=== PATIENT | female | born 1930 ===

== ENCOUNTER 2018-01-08 01:47 | Inpatient (IN) | payer MEDICARE, MEDICAID ==
[2018-01-08 01:48] VITALS: BMI 18.4
[2018-01-08] MEDS ORDERED: Nitroglycerin 2% Ointment Foilpak UD TOP STA (02:17)
[2018-01-08] MEDS ORDERED: Nitroglycerin 2% Ointment Foilpak UD TOP ONE (02:40)
[2018-01-08 03:41] LABS: BASO % 0.6 % (0.0-2.0); HEMOGLOBIN 11.6 g/dL (11.0-16.0); LYMPH # 1.1 K/uL (1.0-4.3); LYMPH % 29.8 % (20.0-40.0); MEAN CELL VOLUME 95.4 fL (81.0-99.0); MEAN CORPUSCULAR HEMOGLOBIN 33.7 pg (27.0-31.0); MEAN CORPUSCULAR HGB CONC 35.4 g/dL (33.0-37.0); MEAN PLATELET VOLUME 8.6 fL (7.2-11.7); MONO # 0.3 K/uL (0.0-0.8); MONO % 8.6 % (0.0-10.0); NEUT # 2.1 K/uL (1.8-7.0); RBC 3.44 Mil/uL (3.80-5.20); RED CELL DISTRIBUTION WIDTH 14.8 % (11.5-14.5); WHITE BLOOD COUNT 3.6 K/uL (4.8-10.8)
[2018-01-08 03:53] LABS: ALB/GLOB RATIO 1.4 (1.0-2.1); ALBUMIN 4.1 g/dL (3.5-5.0); ALT/SGPT 31 U/L (9-52); AST/SGOT 33 U/L (14-36); BLOOD UREA NITROGEN 25 mg/dL (7-17); CALCIUM 8.9 mg/dl (8.6-10.4); GFR AFRICAN-AMERICAN > 60; GFR NON-AFRICAN AMERICAN > 60; LIPASE 168 U/L (23-300)
[2018-01-08 04:05] LABS: B-TYPE NATRIURETIC PEPTIDE 225 pg/mL (0-900)
[2018-01-08 04:17] LABS: PROTHROMBIN TIME 11.4 SECONDS (9.7-12.2)
[2018-01-08] MEDS ORDERED: Iodixanol 320 MG/ML 100 ML BOTTLE IV ONE (04:40)
--- NOTE | 2018-01-08 05:36 | CT ---
EXAM: CT Angiography Chest With Intravenous Contrast CLINICAL HISTORY: 87 years old, female; Pain; Chest pain; Additional info: Chest pain radiating to the back TECHNIQUE: Axial computed tomographic angiography images of the chest with intravenous contrast using pulmonary embolism protocol. All CT scans at this facility use one or more dose reduction techniques, viz.: automated exposure control; ma/kV adjustment per patient size (including targeted exams where dose is matched to indication; i.e. head); or iterative reconstruction technique. MIP reconstructed images were created and reviewed. Coronal and sagittal reformatted images were created and reviewed. CONTRAST: 100 mL of VISIPAQUE administered intravenously. COMPARISON: No relevant prior studies available. FINDINGS: Pulmonary arteries: No pulmonary embolism. Aorta: Moderate to extensive atherosclerotic disease. No aneurysm. Lungs: Early emphysematous changes. Minimal atelectasis. No consolidation. Few pulmonary nodules, up to 0.6 cm. Pleural space: No significant effusion. No pneumothorax. Heart: No cardiomegaly. No significant pericardial effusion. Coronary artery calcifications. Bones/joints: Degenerative changes of shoulders and spine. No acute fracture. Soft tissues: Unremarkable. Lymph nodes: No pathologically enlarged lymph nodes. IMPRESSION: 1. No CT evidence of pulmonary embolism. 2. Pulmonary nodules. For low-risk patients recommend follow-up chest CT at 3-6 months. If unchanged consider an additional follow-up CT at 18-24 months. For high-risk patients (smoking history or other known risk factors) initial follow-up chest CT at 3-6 months and if unchanged, 18-24 months. 3. Incidental/non-acute findings are described above.
--- NOTE | 2018-01-08 05:58 | C.PDOC ---
Time Seen by Provider: 01/08/18 02:07 Chief Complaint (Nursing): Chest Pain History Per: Patient, EMS, Family Onset/Duration Of Symptoms: Hrs (2) Current Symptoms Are (Timing): Still Present Severity: Moderate Quality: "Pain" Associated Symptoms: Dyspnea Modifying Factors: Other Indicated Below Alleviating Factors: None Nitro Therapy Administered: 3, Per EMS, Partial Relief Additional History Per: Prior Records Past Medical History Reviewed: Historical Data, Nursing Documentation, Vital Signs Vital Signs: Last Vital Signs Temp 97.8 F 01/08/18 03:39 Pulse 50 L 01/08/18 03:39 Resp 15 01/08/18 03:39 BP 149/42 L 01/08/18 03:39 Pulse Ox 99 01/08/18 03:39 - Medical History PMH: HTN, Hypothyroidism Surgical History: Cholecystectomy Family History: States: Unknown Family Hx - Social History Hx Alcohol Use: No Hx Substance Use: No - Immunization History Hx Tetanus Toxoid Vaccination: No Hx Influenza Vaccination: No Hx Pneumococcal Vaccination: No Review Of Systems Except As Marked, All Systems Reviewed And Found Negative. Constitutional: Negative for: Fever, Weakness Cardiovascular: Positive for: Chest Pain Respiratory: Negative for: Hemoptysis Gastrointestinal: Negative for: Vomiting, Abdominal Pain, Diarrhea Genitourinary: Negative for: Dysuria Musculoskeletal: Positive for: Back Pain (upper). Negative for: Neck Pain Skin: Negative for: Rash Neurological: Negative for: Weakness, Numbness Physical Exam - Physical Exam Appears: Non-toxic, No Acute Distress Skin: Normal Color, Warm, Dry, No Rash Head: Atraumatic, Normacephalic Eye(s): bilateral: PERRL, EOMI Neck: Normal ROM, Supple Cardiovascular: Rhythm Regular Respiratory: Normal Breath Sounds, No Accessory Muscle Use Gastrointestinal/Abdominal: Soft, No Tenderness Back: No CVA Tenderness Extremity: Normal ROM Neurological/Psych: Oriented x3, Normal Motor, Normal Sensation ED Course And Treatment - Laboratory Results Result Diagrams: 01/08/18 03:35 01/08/18 03:35 ECG: Interpreted By Me, Viewed By Me ECG Rhythm: Sinus Rhythm, Nonspecific Changes Rate From EC O2 Sat by Pulse Oximetry: 99 Pulse Ox Interpretation: Normal - Radiology CXR: Interpreted by Me, Viewed By Me CXR Interpretation: Yes: No Acute Disease - CT Scan/US CTA of chest Other Rad Studies (CT/US): Read By Radiologist, Radiology Report Reviewed CT/US Interpretation: IMPRESSION: 1. No CT evidence of pulmonary embolism. 2. Pulmonary nodules. For low-risk patients recommend follow-up chest CT at. 3-6 months. If unchanged consider an additional follow-up CT at 18-24 months. For high-risk patients (smoking history or other known risk factors) initial. follow-up chest CT at 3-6 months and if unchanged, 18-24 months. 3. Incidental /non-acute findings are described above. Progress - Interventions Interventions:: Observation, Oxygen - Medications Administered Oral: Aspirin (given by EMS) - Data Reviewed Data Reviewed: Lab, Diagnostic imaging, EKG, Old records - Patient Status Patient status: Mostly improved - Critical Care Citical Care: Excluding Proc Time Critical Care Time: 45 minutes - Continuity of Care Discussed patient case with:: Patient, Family-HIPPA compliant, ED Nurse, On- call PMD-pt unassigned Disposition Discussed With : Nasir Segundo Comment: He accepted pt on his service and gave admitting orders to the nurse. Doctor Will See Patient In The: Hospital Counseled Patient/Family Regarding: Studies Performed, Diagnosis - Disposition Disposition: HOSPITALIZED Disposition Time: 05:59 Condition: FAIR - Clinical Impression Clinical Impression: Acute chest pain
[2018-01-08] MEDS ORDERED: Diclofenac Sodium Delayed Release 75 mg EC Tab PO PRN (06:38)
[2018-01-08] MEDS: Levothyroxine 88 MCG TAB PO SCH ×2 (06:58→07:09)
[2018-01-08] MEDS ORDERED: Pantoprazole 40 mg EC Tab PO ONE (07:38)
[2018-01-08] MEDS: Pantoprazole 40 mg EC Tab PO SCH (07:38)
[2018-01-08] MEDS ORDERED: Metoprolol Succinate 12.5 mg XL PO SCH (10:00)
--- NOTE | 2018-01-08 10:02 | RAD ---
PROCEDURE: CHEST RADIOGRAPH, 1 VIEW HISTORY: chest pain COMPARISON: None available. FINDINGS: LUNGS: Clear. PLEURA: No pneumothorax or pleural fluid seen. CARDIOVASCULAR: Normal. OSSEOUS STRUCTURES: No significant abnormalities. VISUALIZED UPPER ABDOMEN: Normal. OTHER FINDINGS: None. IMPRESSION: No active disease.
[2018-01-08] MEDS: Enoxaparin 30 mg Syringe SC SCH (10:11)
[2018-01-08] MEDS: Multiple Vitamins Tab PO SCH (10:11)
[2018-01-08 11:34] LABS: CK-MB 1.25 ng/mL (0.0-3.38)
--- NOTE | 2018-01-08 15:05 | CP.PCM.HP ---
History of Present Illness - History of Present Illness History of Present Illness: COMPREHENSIVE HISTORY & PHYSICAL EXAM HPI ADMITTED WITH CP RADINTING TO L ARM A/W DIAPHORESIS CH ER , PRELIMINARY CARDIAC W/U NEG CT CHEST ANGIO , NEG FOR PE , POS NODULES PAST HIST. HTN/ PERSONAL HIST: Smoking. N Alcohol. N Allergy N Travel_- . FAMILY HIST : ROS : Constitutional: Negative for weight change, chills, night sweats, fatigue and usage of assist device. Eyes: Negative for redness, swelling, itching, discharge, vision changes, blurry vision, double vision, glaucoma, cataracts, Ears: Negative for hearing loss, ringing, , tinnitus, vertigo Nose: Negative for rhinorrhea, stuffiness, sniffing, itching, postnasal drip, discoloration, nasal congestion and epistaxis. Throat: Negative for throat clearing, sore throat, hoarseness, difficulty swallowing and difficulty speaking. Respiratory: Negative for cough, , sputum production, chest tightness, wheezing, pleuritic chest pain ,daytime somnolence, chronic cough, hemoptysis, snoring at night, Cardiovascular: Negative for Edema of legs, leg cramps, angina, claudication, , irregular heartbeat, Neurology: Negative for irritability, muscle weakness, numbness and tingling, seizures, tremors, migraines, slurred speech, syncope, memory loss, mood changes , recurrent headaches Gastrointestinal: Negative for difficulty swallowing, diarrhea, constipation, black stools, rectal bleeding, nausea, flatulence, reflux, poor appetite, changes in bowel habits, abdominal pain Genitourinary: Negative for frequent urination, hematuria, discharge, incontinence, urinary retention, frequent UTI, Psychiatric: Negative for depression, anxiety/panic, suicidal tendencies, Musculoskeletal: Negative for swollen joints, back pain, , neck pain, morning stiffness of joints, . Skin: Negative for rash, ulcers, itching, dry skin and pigmented lesions. P/E: Constitutional: Appears stated age and in no apparent distress. Head: Normocephalic. Ears: External ear canals patent without inflammation. Tympanic membranes intact with normal light reflex and landmark. Eyes: Pupils are central, bilaterally equal, symmetrical and reacts to light with normal movements and no icterus or pallor. Nose: External nares are patent. Mucosa is pink Mouth-Throat: Good general appearance and condition. No post-pharyngeal/oropharyngeal erythema and tonsillar hypertrophy. Good dental hygiene. Neck-Lymphatic: Neck is supple with normal ROM, no thyromegaly, lymph nodes or masses. JVD is normal with no carotid bruit. Lungs: Clear to percussion and auscultation with bilateral normal air entry. Cardiovascular: S1 and S2 are normal with no murmurs, gallops and rub. GI Exam: No hepatomegaly. Abdomen is soft and non-tender. No Organomegaly , masses or hernias are evident and bowel sounds are normal and active. Neurology: Higher function and all cranial nerves intact, with no gross motor or sensory deficit. Superficial and deep reflexes are normal with downwards planters. No cerebellar deficit with normal gait. Musculoskeletal: No tender spots with normal curvature of the spine with no swelling or restricted ROM of the small and large joints. Extremities: Homans sign absent. Intact pulses with no pitting edema, calf tenderness or skin color changes. Skin: No rash, eruptions or abnormal skin pigmentation LAB/RADIOLOGY: ASSESMENT : ACUTE CORONARY SYNDROME HTN HYPOTHYROIDISM PULM NODULES PLAN: SERIAL TNI INCREASE SYNTHROID CT CHEST 3 MONTHS Present on Admission - Present on Admission Any Indicators Present on Admission: No Past Patient History - Past Social History Smoking Status: Never Smoked - CARDIAC Hx Hypertension: Yes - PULMONARY Hx Respiratory Disorders: No - NEUROLOGICAL Hx Neurological Disorder: No - HEENT Hx HEENT Problems: No - RENAL Hx Chronic Kidney Disease: No - ENDOCRINE/METABOLIC Hx Hypothyroidism: Yes - HEMATOLOGICAL/ONCOLOGICAL Hx Blood Disorders: No - INTEGUMENTARY Hx Dermatological Problems: No - MUSCULOSKELETAL/RHEUMATOLOGICAL Hx Musculoskeletal Disorders: No Hx Falls: No - GASTROINTESTINAL Hx Gastrointestinal Disorders: Yes Other/Comment: colitis with EGD - GENITOURINARY/GYNECOLOGICAL Hx Genitourinary Disorders: No - PSYCHIATRIC Hx Substance Use: No - SURGICAL HISTORY Hx Cholecystectomy: Yes Meds Allergies/Adverse Reactions: Allergies Allergy/AdvReac Type Severity Reaction Status Date / Time No Known Allergies Allergy Verified 01/21/17 18:40 Results - Vital Signs Recent Vital Signs: Last Vital Signs Temp 98 F 01/08/18 05:52 Pulse 53 L 01/08/18 14:08 Resp 15 01/08/18 14:08 BP 170/45 H 01/08/18 14:08 Pulse Ox 100 01/08/18 14:08 - Labs Result Diagrams: 01/08/18 03:35 01/08/18 03:35 Labs: Laboratory Results - last 24 hr 01/08/18 01/08/18 01/08/18 03:35 03:35 03:35 WBC 3.6 L RBC 3.44 L Hgb 11.6 Hct 32.8 L MCV 95.4 MCH 33.7 H MCHC 35.4 RDW 14.8 H Plt Count 140 MPV 8.6 Neut % (Auto) 60.0 Lymph % (Auto) 29.8 Jennings % (Auto) 8.6 Eos % (Auto) 1.0 Baso % (Auto) 0.6 Neut # (Auto) 2.1 Lymph # (Auto) 1.1 Jennings # (Auto) 0.3 Eos # (Auto) 0.0 Baso # (Auto) 0.0 PT 11.4 INR 1.0 APTT 33 D-Dimer, Quantitative 400 H Sodium 142 Potassium 3.8 Chloride 103 Carbon Dioxide 28 Anion Gap 15 BUN 25 H Creatinine 0.7 Est GFR ( Amer) > 60 Est GFR (Non-Af Amer) > 60 Random Glucose 115 H Calcium 8.9 Total Bilirubin 0.5 AST 33 ALT 31 Alkaline Phosphatase 200 H Total Creatine Kinase CK-MB (Mass) Troponin I < 0.0120 NT-Pro-B Natriuret Pep 225 Total Protein 7.1 Albumin 4.1 Globulin 3.0 Albumin/Globulin Ratio 1.4 Lipase 168 TSH 3rd Generation 01/08/18 01/08/18 06:56 11:06 WBC RBC Hgb Hct MCV MCH MCHC RDW Plt Count MPV Neut % (Auto) Lymph % (Auto) Jennings % (Auto) Eos % (Auto) Baso % (Auto) Neut # (Auto) Lymph # (Auto) Jennings # (Auto) Eos # (Auto) Baso # (Auto) PT INR APTT D-Dimer, Quantitative Sodium Potassium Chloride Carbon Dioxide Anion Gap BUN Creatinine Est GFR ( Amer) Est GFR (Non-Af Amer) Random Glucose Calcium Total Bilirubin AST ALT Alkaline Phosphatase Total Creatine Kinase 81 CK-MB (Mass) 1.25 Troponin I < 0.0120 NT-Pro-B Natriuret Pep Total Protein Albumin Globulin Albumin/Globulin Ratio Lipase TSH 3rd Generation 15.90 H
[2018-01-08] MEDS ORDERED: Metoprolol Succinate 50 mg XL Tab PO STA (17:49)
[2018-01-08 18:36] LABS: CK-MB 1.32 ng/mL (0.0-3.38)
[2018-01-09] MEDS: Levothyroxine 100 MCG TAB PO SCH (06:52)
[2018-01-09] MEDS: Pantoprazole 40 mg EC Tab PO SCH (07:47)
[2018-01-09] MEDS ORDERED: Metoprolol Succinate 25 mg XL Tab PO SCH (10:00)
[2018-01-09] MEDS: Enoxaparin 30 mg Syringe SC SCH (11:03)
[2018-01-09] MEDS: Multiple Vitamins Tab PO SCH (11:03)
--- NOTE | 2018-01-09 12:44 | CP.PCM.PN ---
Subjective - Date & Time of Evaluation Date of Evaluation: 01/09/18 Time of Evaluation: 12:43 - Subjective Subjective: CHIEF COMPLAINTS TODAY : HEADACHE HR IS LOW DUE TO LAST PM COMBINATION OF LOPRESSOR AND CLONIDINE BP LOW NORMAL ROS. HEENT : N. Resp : No cough, wheezing ,pleuritic CP ,or hemoptysis Cardio : No anginal CP, PND, orthopnea, palpitation GI : No abd.pain, n/v ,diarrhea or GI bleeding . 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 Musculoskel : No joint swelling , Derm : No rash Psych : Normal affect. Ext : No swelling ,calf pain PE. Pt. is alert awake in no distress. V.S As noted in the chart Head ,ear nose,throat and eyes : Normal. Neck : Supple with normal carotids. Lungs: Clear air entry. Heart : S1 & S2 normal with S4. No murmur. Abd : Soft non tender with normal bowel sounds. Neuro : Moves all ext. with no localized deficit. Ext : No edema with intact pulses.Non tender calves Derm : No rashes or decubitus ulcer. LABS/RADIOLOGY: ASSESSMENT/PLAN : CARDIO/NEURO W/U Objective - Vital Signs/Intake and Output Vital Signs (last 24 hours): Temp Pulse Resp BP Pulse Ox 97.9 F 45 L 18 111/61 98 01/09/18 12:36 01/09/18 12:36 01/09/18 12:36 01/09/18 12:36 01/09/18 12:36 - Medications Medications: Current Medications Acetaminophen (Tylenol 325mg Tab) 650 mg PO Q4 PRN PRN Reason: pain Last Admin: 01/08/18 22:31 Dose: 650 mg Diclofenac Sodium (Voltaren) 75 mg PO BID PRN PRN Reason: Pain, Mild (1-3) Enoxaparin Sodium (Lovenox) 30 mg SC DAILY [facility] Last Admin: 01/09/18 11:03 Dose: 30 mg Gabapentin (Neurontin) 300 mg PO DAILY [facility] Last Admin: 01/09/18 11:03 Dose: 300 mg Levothyroxine Sodium (Synthroid) 100 mcg PO 0630 [facility] Last Admin: 01/09/18 06:52 Dose: 100 mcg Losartan Potassium (Cozaar) 50 mg PO DAILY [facility] Multivitamins (Hexavitamin) 1 tab PO DAILY [facility] Last Admin: 01/09/18 11:03 Dose: 1 tab Pantoprazole Sodium (Protonix Ec Tab) 40 mg PO ACB [facility] Last Admin: 01/09/18 07:47 Dose: 40 mg - Labs Labs: 01/08/18 03:35 01/08/18 03:35 PT 11.4 SECONDS (9.7-12.2) 01/08/18 03:35 INR 1.0 01/08/18 03:35 APTT 33 SECONDS (21-34) 01/08/18 03:35
--- NOTE | 2018-01-09 22:09 | CARD ---
APPROVED REPORT EKG Measurement Heart [id number] <Conclusion> Normal sinus rhythm Poor R wave progression V1 - V2 Borderline EKG
--- NOTE | 2018-01-09 22:10 | CARD ---
APPROVED REPORT EKG Measurement Heart [id number] <Conclusion> Normal sinus rhythm Nonspecific T wave abnormality Abnormal ECG
[2018-01-10] MEDS: Levothyroxine 100 MCG TAB PO SCH (05:30)
[2018-01-10 07:39] LABS: BASO % 0.5 % (0.0-2.0); EOS # 0.1 K/uL (0.0-0.7); EOS % 1.3 % (0.0-4.0); HEMOGLOBIN 11.3 g/dL (11.0-16.0); LYMPH # 1.2 K/uL (1.0-4.3); LYMPH % 30.8 % (20.0-40.0); MEAN CELL VOLUME 94.7 fL (81.0-99.0); MEAN CORPUSCULAR HGB CONC 34.9 g/dL (33.0-37.0); MEAN PLATELET VOLUME 8.7 fL (7.2-11.7); MONO # 0.3 K/uL (0.0-0.8); NEUT # 2.4 K/uL (1.8-7.0); NEUT % 60.4 % (50.0-75.0); RBC 3.43 Mil/uL (3.80-5.20); RED CELL DISTRIBUTION WIDTH 14.1 % (11.5-14.5)
[2018-01-10 08:06] LABS: ALB/GLOB RATIO 1.4 (1.0-2.1); ALBUMIN 3.5 g/dL (3.5-5.0); ALT/SGPT 24 U/L (9-52); AST/SGOT 31 U/L (14-36); BLOOD UREA NITROGEN 24 mg/dL (7-17); CALCIUM 8.2 mg/dl (8.6-10.4); GFR AFRICAN-AMERICAN > 60; GFR NON-AFRICAN AMERICAN > 60
[2018-01-10] MEDS: Pantoprazole 40 mg EC Tab PO SCH (08:47)
[2018-01-10] MEDS ORDERED: Potassium Chloride 20 mEq ER Tab PO ONE (10:30)
--- NOTE | 2018-01-10 10:30 | MRI ---
PROCEDURE: MRI BRAIN WITHOUT CONTRAST HISTORY: CVA COMPARISON: None. TECHNIQUE: Multiplanar, multisequence MR images of the brain were obtained without intravenous contrast enhancement. FINDINGS: HEMORRHAGE: None DWI: No evidence of an acute or early subacute infarction. BRAIN PARENCHYMA: There are mild chronic microangiopathic changes. There is no mass, mass effect or abnormal extra-axial fluid collection. The midline sagittal structures are normal. VENTRICLES: There is moderate age-related global parenchymal volume loss and proportionate enlargement of the ventricles and cortical sulci. CRANIUM: There is normal bone marrow signal pattern. ORBITS: Grossly unremarkable. PARANASAL SINUSES/MASTOIDS: Predominantly clear. VASCULAR SYSTEM: There are normal signal voids in the larger intracranial arteries. OTHER FINDINGS: None. IMPRESSION: 1. No acute intracranial abnormality. 2. Mild chronic microangiopathic changes and mild age-related global parenchymal volume loss.
[2018-01-10] MEDS: Multiple Vitamins Tab PO SCH (10:40)
[2018-01-10] MEDS: Enoxaparin 30 mg Syringe SC SCH (10:40)
--- NOTE | 2018-01-10 13:16 | CP.PCM.PN ---
Subjective - Date & Time of Evaluation Date of Evaluation: 01/10/18 Time of Evaluation: 13:14 - Subjective Subjective: HR IN 50'S , STABLE BP HEADACHE DOWN MRI BRAIN , NOTHING ACUTE TNI NEG AMBULATE , MONITOR HR Objective - Vital Signs/Intake and Output Vital Signs (last 24 hours): Temp Pulse Resp BP Pulse Ox 98.0 F 53 L 18 146/61 96 01/10/18 07:10 01/10/18 07:10 01/10/18 07:10 01/10/18 07:10 01/10/18 07:10 - Medications Medications: Current Medications Acetaminophen (Tylenol 325mg Tab) 650 mg PO Q4 PRN PRN Reason: pain Last Admin: 01/08/18 22:31 Dose: 650 mg Diclofenac Sodium (Voltaren) 75 mg PO BID PRN PRN Reason: Pain, Mild (1-3) Enoxaparin Sodium (Lovenox) 30 mg SC DAILY [facility] Last Admin: 01/10/18 10:40 Dose: 30 mg Gabapentin (Neurontin) 300 mg PO DAILY [facility] Last Admin: 01/10/18 10:37 Dose: 300 mg Levothyroxine Sodium (Synthroid) 100 mcg PO 0630 [facility] Last Admin: 01/10/18 05:30 Dose: 100 mcg Losartan Potassium (Cozaar) 50 mg PO DAILY [facility] Last Admin: 01/10/18 10:40 Dose: 50 mg Multivitamins (Hexavitamin) 1 tab PO DAILY [facility] Last Admin: 01/10/18 10:40 Dose: 1 tab Pantoprazole Sodium (Protonix Ec Tab) 40 mg PO ACB [facility] Last Admin: 01/10/18 08:47 Dose: 40 mg - Labs Labs: 01/10/18 07:16 01/10/18 07:16 PT 11.4 SECONDS (9.7-12.2) 01/08/18 03:35 INR 1.0 01/08/18 03:35 APTT 33 SECONDS (21-34) 01/08/18 03:35
--- NOTE | 2018-01-10 16:30 | VASCLAB ---
PROCEDURE: HISTORY: CAROTID BRUIT COMPARISON: None available. TECHNIQUE: Grayscale and duplex Doppler evaluation of the cervical carotid and vertebral arteries were performed. The common carotid, carotid bifurcations and cervical Internal Carotid Artery (ICA) and proximal External Carotid Artery (ECA) were evaluated. The vertebral arteries were evaluated for gross patency and flow direction. Report prepared by YAYO Cohen FINDINGS: RIGHT CAROTID ARTERIES: 1. Common Carotid Artery: No significant focal plaque formation of the right common carotid artery. Maximum Peak Systolic velocity: 56 cm/sec: End-diastolic velocity 6 cm/sec. 2. Carotid Bifurcation: plaque formation. Maximum Peak Systolic velocity: 39 cm/sec: End-diastolic velocity 6 cm/sec. 3. Internal Carotid Artery: Plaque description: 3.1. Proximal Segment: Peak systolic velocity 56 cm/sec: End-diastolic velocity 10 cm/sec - % stenosis 0-15% 3.2. Middle Segment: Peak systolic velocity 72 cm/sec: End-diastolic velocity 13 cm/sec - % stenosis 0-15% 3.3. Distal Segment: Peak systolic velocity 99 cm/sec: End-diastolic velocity 13 cm/sec - % stenosis 0-15% 4. External Carotid Artery: No significant focal plaque formation. Peak systolic velocity 57 cm/sec 5. ICA/CCA Ratio: 1.8 LEFT CAROTID ARTERIES: 1. Common Carotid Artery: No significant focal plaque formation of the left common carotid artery. Maximum Peak Systolic velocity: 58 cm/sec: End-diastolic velocity 0 cm/sec. 2. Carotid Bifurcation: plaque formation. Maximum Peak Systolic velocity: 50 cm/sec: End-diastolic velocity 7 cm/sec. 3. Internal Carotid Artery: Plaque description: 3.1. Proximal Segment: Peak systolic velocity 50 cm/sec: End-diastolic velocity 7 cm/sec - % stenosis 0-15% 3.2. Middle Segment: Peak systolic velocity 60 cm/sec: End-diastolic velocity 13 cm/sec - % stenosis 0-15% 3.3. Distal Segment: Peak systolic velocity 95 cm/sec: End-diastolic velocity 14 cm/sec - % stenosis 0-15% 4. External Carotid Artery: No significant focal plaque formation. Peak systolic velocity 63 cm/sec 5. ICA/CCA Ratio: 1.6 VERTEBRAL ARTERIES: 1. Right Vertebral Artery: The right vertebral artery flow direction is antegrade. 2. Left Vertebral Artery: The left vertebral artery flow direction is antegrade. OTHER FINDINGS: 1. Right Brachial Blood pressure: mmHg. 2. Left Brachial Blood pressure: mmHg. IMPRESSION: RIGHT: Duplex scan does not suggest hemodynamically significant stenosis of the right extracranial carotid arteries. LEFT: Duplex scan does not suggest hemodynamically significant stenosis of the left extracranial carotid arteries.
[2018-01-11] MEDS: Levothyroxine 100 MCG TAB PO SCH (07:00)
[2018-01-11 08:39] LABS: EOS # 0.1 K/uL (0.0-0.7); EOS % 1.1 % (0.0-4.0); HEMOGLOBIN 11.5 g/dL (11.0-16.0); LYMPH # 1.5 K/uL (1.0-4.3); LYMPH % 32.5 % (20.0-40.0); MEAN CELL VOLUME 94.9 fL (81.0-99.0); MEAN CORPUSCULAR HEMOGLOBIN 33.9 pg (27.0-31.0); MEAN CORPUSCULAR HGB CONC 35.7 g/dL (33.0-37.0); MEAN PLATELET VOLUME 9.2 fL (7.2-11.7); MONO # 0.4 K/uL (0.0-0.8); MONO % 7.9 % (0.0-10.0); NEUT # 2.6 K/uL (1.8-7.0); NEUT % 57.5 % (50.0-75.0); RBC 3.4 Mil/uL (3.80-5.20); RED CELL DISTRIBUTION WIDTH 14.4 % (11.5-14.5); WHITE BLOOD COUNT 4.5 K/uL (4.8-10.8)
[2018-01-11 08:43] LABS: NRBC % 0.5 % (0.0-2.0)
[2018-01-11] MEDS ORDERED: Influenza Vaccine 60 mcg/0.5 mL SYR (4YR UP) IM ONE (10:00)
[2018-01-11] MEDS: Pantoprazole 40 mg EC Tab PO SCH (10:28)
[2018-01-11] MEDS: Multiple Vitamins Tab PO SCH (10:28)
[2018-01-11] MEDS: Enoxaparin 30 mg Syringe SC SCH (10:28)
[2018-01-11 11:52] LABS: ALB/GLOB RATIO 1.4 (1.0-2.1); ALBUMIN 3.6 g/dL (3.5-5.0); ALT/SGPT 26 U/L (9-52); AST/SGOT 35 U/L (14-36); BLOOD UREA NITROGEN 15 mg/dL (7-17); CALCIUM 8.1 mg/dl (8.6-10.4); GFR AFRICAN-AMERICAN > 60; GFR NON-AFRICAN AMERICAN > 60
--- NOTE | 2018-01-11 14:00 | CP.PCM.PN ---
Subjective - Date & Time of Evaluation Date of Evaluation: 01/11/18 Time of Evaluation: 13:59 - Subjective Subjective: HAS CP NO FURTHER HEADACHE TNI NEG CHECK ECHO D/W FAMILY Objective - Vital Signs/Intake and Output Vital Signs (last 24 hours): Temp Pulse Resp BP Pulse Ox 97.8 F 67 20 156/55 H 98 01/11/18 07:04 01/11/18 12:18 01/11/18 07:04 01/11/18 10:27 01/11/18 07:04 - Medications Medications: Current Medications Acetaminophen (Tylenol 325mg Tab) 650 mg PO Q4 PRN PRN Reason: pain Last Admin: 01/08/18 22:31 Dose: 650 mg Diclofenac Sodium (Voltaren) 75 mg PO BID PRN PRN Reason: Pain, Mild (1-3) Enoxaparin Sodium (Lovenox) 30 mg SC DAILY [facility] Last Admin: 01/11/18 10:28 Dose: 30 mg Gabapentin (Neurontin) 300 mg PO DAILY [facility] Last Admin: 01/11/18 10:28 Dose: 300 mg Levothyroxine Sodium (Synthroid) 100 mcg PO 0630 [facility] Last Admin: 01/11/18 07:00 Dose: 100 mcg Losartan Potassium (Cozaar) 50 mg PO DAILY [facility] Last Admin: 01/11/18 10:28 Dose: 50 mg Multivitamins (Hexavitamin) 1 tab PO DAILY [facility] Last Admin: 01/11/18 10:28 Dose: 1 tab Pantoprazole Sodium (Protonix Ec Tab) 40 mg PO ACB [facility] Last Admin: 01/11/18 10:28 Dose: 40 mg - Labs Labs: 01/11/18 08:22 01/11/18 11:12 PT 11.4 SECONDS (9.7-12.2) 01/08/18 03:35 INR 1.0 01/08/18 03:35 APTT 33 SECONDS (21-34) 01/08/18 03:35
[2018-01-12] MEDS: Levothyroxine 100 MCG TAB PO SCH (05:37)
[2018-01-12 08:07] LABS: BASO % 0.4 % (0.0-2.0); EOS % 0.8 % (0.0-4.0); HEMOGLOBIN 11.2 g/dL (11.0-16.0); LYMPH # 0.8 K/uL (1.0-4.3); LYMPH % 21.8 % (20.0-40.0); MEAN CELL VOLUME 95.1 fL (81.0-99.0); MEAN CORPUSCULAR HEMOGLOBIN 33.9 pg (27.0-31.0); MEAN CORPUSCULAR HGB CONC 35.7 g/dL (33.0-37.0); MEAN PLATELET VOLUME 8.3 fL (7.2-11.7); MONO # 0.3 K/uL (0.0-0.8); MONO % 9.9 % (0.0-10.0); NEUT # 2.3 K/uL (1.8-7.0); NEUT % 67.1 % (50.0-75.0); NRBC % 0.1 % (0.0-2.0); RBC 3.29 Mil/uL (3.80-5.20); RED CELL DISTRIBUTION WIDTH 14.1 % (11.5-14.5); WHITE BLOOD COUNT 3.5 K/uL (4.8-10.8)
[2018-01-12 10:11] LABS: ALB/GLOB RATIO 1.5 (1.0-2.1); ALBUMIN 3.7 g/dL (3.5-5.0); ALT/SGPT 32 U/L (9-52); AST/SGOT 47 U/L (14-36); BLOOD UREA NITROGEN 17 mg/dL (7-17); CALCIUM 8.1 mg/dl (8.6-10.4); GFR AFRICAN-AMERICAN > 60; GFR NON-AFRICAN AMERICAN > 60
[2018-01-12] MEDS: Multiple Vitamins Tab PO SCH (11:13)
[2018-01-12] MEDS: Pantoprazole 40 mg EC Tab PO SCH (11:13)
[2018-01-12] MEDS: Enoxaparin 30 mg Syringe SC SCH (11:13)
--- NOTE | 2018-01-12 12:06 | CARD ---
APPROVED REPORT EXAM: Two-dimensional and M-mode echocardiogram with Doppler and color Doppler. Other Information Quality : GoodRhythm : INDICATION Chest Pain TROPONIN RISK FACTORS Hypertension 2D DIMENSIONS IVSd0.8 (0.7-1.1cm)LVDd3.6 (3.9-5.9cm) PWd0.7 (0.7-1.1cm)LVDs1.9 (2.5-4.0cm) FS (%) 45.7 %LVEF (%)77.9 (>50%) M-Mode DIMENSIONS Left Atrium (MM)2.90 (2.5-4.0cm)Aortic Root3.09 (2.2-3.7cm) Aortic Cusp Exc.1.75 (1.5-2.0cm) Aortic Valve AI P 1/2 [id number] Mitral Valve MV E Chjoabnw03.9cm/sMV A Nbxxeuwy878.0cm/sE/A ratio0.7 TDI E/Lateral E'0.0E/Medial E'0.0 Tricuspid Valve TR Peak [id number]/sTR Peak Gr.[id number] LEFT VENTRICLE The left ventricle is normal size. There is normal left ventricular wall thickness. The left ventricular function is normal. The left ventricular ejection fraction is within the normal range. No regional wall motion abnormalities noted. The left ventricular diastolic function is normal. No left ventricle thrombus noted on this study. There is no ventricular septal defect visualized. There is no left ventricular aneurysm. There is no mass noted in the left ventricle. RIGHT VENTRICLE The right ventricle is normal size. There is normal right ventricular wall thickness. The right ventricular systolic function is normal. ATRIA The left atrium size is normal. The right atrium size is normal. The interatrial septum is intact with no evidence for an atrial septal defect. AORTIC VALVE The aortic valve is normal in structure and function. There is mild to moderate aortic regurgitation. There is no aortic valvular stenosis. There is no aortic valvular vegetation. MITRAL VALVE The mitral valve is normal in structure and function. There is no evidence of mitral valve prolapse. There is no mitral valve stenosis. There is no mitral valve regurgitation noted. TRICUSPID VALVE The tricuspid valve is normal in structure and function. There is mild tricuspid regurgitation. Right ventricular systolic pressure is estimated at less than 30 mmHg. There is no tricuspid valve prolapse or vegetation. There is no tricuspid valve stenosis. PULMONIC VALVE The pulmonary valve is normal in structure and function. There is no pulmonic valvular regurgitation. There is no pulmonic valvular stenosis. GREAT VESSELS The aortic root is normal in size. The ascending aorta is normal in size. The pulmonary artery is normal. The IVC is normal in size and collapses >50% with inspiration. PERICARDIAL EFFUSION The pericardium appears normal. There is no pleural effusion. <Conclusion> The left ventricular function is normal. The left ventricular ejection fraction is within the normal range. No regional wall motion abnormalities noted. There is mild to moderate aortic regurgitation.
--- NOTE | 2018-01-12 13:41 | CP.PCM.PN ---
Subjective - Date & Time of Evaluation Date of Evaluation: 01/12/18 Time of Evaluation: 13:40 - Subjective Subjective: ECHO , N LV EF , MILD AI NO FURTHER CP FEELS WEAK AND UNSTEADY GAIT TRANSFER TO [facility] Objective - Vital Signs/Intake and Output Vital Signs (last 24 hours): Temp Pulse Resp BP Pulse Ox 98.1 F 73 18 155/64 H 98 01/12/18 07:38 01/12/18 11:14 01/12/18 07:38 01/12/18 11:14 01/12/18 07:38 - Medications Medications: Current Medications Acetaminophen (Tylenol 325mg Tab) 650 mg PO Q4 PRN PRN Reason: pain Last Admin: 01/08/18 22:31 Dose: 650 mg Diclofenac Sodium (Voltaren) 75 mg PO BID PRN PRN Reason: Pain, Mild (1-3) Enoxaparin Sodium (Lovenox) 30 mg SC DAILY [facility] Last Admin: 01/12/18 11:13 Dose: 30 mg Gabapentin (Neurontin) 300 mg PO DAILY [facility] Last Admin: 01/12/18 11:13 Dose: 300 mg Levothyroxine Sodium (Synthroid) 100 mcg PO 0630 [facility] Last Admin: 01/12/18 05:37 Dose: 100 mcg Losartan Potassium (Cozaar) 50 mg PO DAILY [facility] Last Admin: 01/12/18 11:13 Dose: 50 mg Multivitamins (Hexavitamin) 1 tab PO DAILY [facility] Last Admin: 01/12/18 11:13 Dose: 1 tab Pantoprazole Sodium (Protonix Ec Tab) 40 mg PO ACB [facility] Last Admin: 01/12/18 11:13 Dose: 40 mg - Labs Labs: 01/12/18 07:55 01/12/18 07:55 PT 11.4 SECONDS (9.7-12.2) 01/08/18 03:35 INR 1.0 01/08/18 03:35 APTT 33 SECONDS (21-34) 01/08/18 03:35
[2018-01-12 15:47] VITALS: RESP 20
[2018-01-13] MEDS: Levothyroxine 100 MCG TAB PO SCH (05:37)
[2018-01-13 07:33] LABS: BASO % 0.5 % (0.0-2.0); EOS % 1.1 % (0.0-4.0); HEMOGLOBIN 11.2 g/dL (11.0-16.0); LYMPH # 1.1 K/uL (1.0-4.3); LYMPH % 34.5 % (20.0-40.0); MEAN CELL VOLUME 94.1 fL (81.0-99.0); MEAN CORPUSCULAR HEMOGLOBIN 33.8 pg (27.0-31.0); MEAN CORPUSCULAR HGB CONC 35.9 g/dL (33.0-37.0); MEAN PLATELET VOLUME 8.3 fL (7.2-11.7); MONO # 0.3 K/uL (0.0-0.8); MONO % 9.2 % (0.0-10.0); NEUT # 1.8 K/uL (1.8-7.0); NEUT % 54.7 % (50.0-75.0); NRBC % 0.1 % (0.0-2.0); RBC 3.32 Mil/uL (3.80-5.20); RED CELL DISTRIBUTION WIDTH 14.3 % (11.5-14.5); WHITE BLOOD COUNT 3.3 K/uL (4.8-10.8)
[2018-01-13 08:16] LABS: ALB/GLOB RATIO 1.4 (1.0-2.1); ALBUMIN 3.6 g/dL (3.5-5.0); ALT/SGPT 39 U/L (9-52); AST/SGOT 46 U/L (14-36); BLOOD UREA NITROGEN 19 mg/dL (7-17); CALCIUM 8.3 mg/dl (8.6-10.4); GFR AFRICAN-AMERICAN > 60; GFR NON-AFRICAN AMERICAN > 60
[2018-01-13] MEDS: Pantoprazole 40 mg EC Tab PO SCH (09:28)
[2018-01-13] MEDS: Enoxaparin 30 mg Syringe SC SCH (09:39)
[2018-01-13] MEDS: Multiple Vitamins Tab PO SCH (09:39)
[2018-01-13] MEDS ORDERED: Influenza Vaccine 60 mcg/0.5 mL SYR (4YR UP) IM ONE (11:26)
--- NOTE | 2018-01-13 12:18 | CP.PCM.PN ---
Subjective - Date & Time of Evaluation Date of Evaluation: 01/13/18 Time of Evaluation: 12:18 - Subjective Subjective: PATIENT WAS ADMITTING FOR CHEST PAIN AAOX3 DENIES CHEST PAIN AND SOB NO SIGN OF DISTRESS NOTED Objective - Vital Signs/Intake and Output Vital Signs (last 24 hours): Temp Pulse Resp BP Pulse Ox 97.9 F 74 20 155/75 H 96 01/13/18 08:43 01/13/18 09:41 01/13/18 08:43 01/13/18 09:41 01/13/18 08:43 - Medications Medications: Current Medications Acetaminophen (Tylenol 325mg Tab) 650 mg PO Q4 PRN PRN Reason: pain Last Admin: 01/08/18 22:31 Dose: 650 mg Diclofenac Sodium (Voltaren) 75 mg PO BID PRN PRN Reason: Pain, Mild (1-3) Enoxaparin Sodium (Lovenox) 30 mg SC DAILY [facility] Last Admin: 01/13/18 09:39 Dose: 30 mg Gabapentin (Neurontin) 300 mg PO DAILY [facility] Last Admin: 01/13/18 09:39 Dose: 300 mg Levothyroxine Sodium (Synthroid) 100 mcg PO 0630 [facility] Last Admin: 01/13/18 05:37 Dose: 100 mcg Losartan Potassium (Cozaar) 50 mg PO DAILY [facility] Last Admin: 01/13/18 09:39 Dose: 50 mg Multivitamins (Hexavitamin) 1 tab PO DAILY [facility] Last Admin: 01/13/18 09:39 Dose: 1 tab Pantoprazole Sodium (Protonix Ec Tab) 40 mg PO ACB [facility] Last Admin: 01/13/18 09:28 Dose: 40 mg - Labs Labs: 01/13/18 07:26 01/13/18 07:26 PT 11.4 SECONDS (9.7-12.2) 01/08/18 03:35 INR 1.0 01/08/18 03:35 APTT 33 SECONDS (21-34) 01/08/18 03:35 Assessment and Plan - Assessment and Plan (Free Text) Assessment: PATIENT SEEN AND EXAMINED AT THE BEDSIDE LUNG SOUND CLEAR MRI OF THE BRAIN IS NEG ECHO WAS DONE WNL AND TNI X3 IS NEG DISCUSS WITH DR CARLOS WHO CLEAR PATIENT FOR DC [facility] THE SERVICE OF DR CARLOS AT [facility]---CALL DR BREANNA FOR ADMITTING ORDER CONTINUE ALL HOME MEDICATION ORDER ACTIVITY TOLERATED PHYSICAL THERAPY PER FACILITY PROTOCOL AND DR CARLOS CALL DR CARLOS FOR FURTHER ORDERS DISCUSS WITH PATIENT WHO AGREE AND VERBALIZED UNDERSTANDING
--- NOTE | 2018-01-13 13:49 | CP.PCM.DIS ---
Provider - Provider Date of Admission: 01/10/18 12:30 Attending physician: Nasir Segundo MD Time Spent in preparation of Discharge (in minutes): 30 Hospital Course - Lab Results Lab Results: Most Recent Lab Values WBC 3.3 K/uL (4.8-10.8) L 01/13/18 07: RBC 3.32 Mil/uL (3.80-5.20) L 01/13/18 07:26 Hgb 11.2 g/dL (11.0-16.0) 01/13/18 07: Hct 31.2 % (34.0-47.0) L 01/13/18 07: MCV 94.1 fL (81.0-99.0) 01/13/18 07: MCH 33.8 pg (27.0-31.0) H 01/13/18 07: MCHC 35.9 g/dL (33.0-37.0) 01/13/18 07: RDW 14.3 % (11.5-14.5) 01/13/18 07: Plt Count 129 K/uL (130-400) L 01/13/18 07: MPV 8.3 fL (7.2-11.7) 01/13/18 07: Neut % (Auto) 54.7 % (50.0-75.0) 01/13/18 07: Lymph % (Auto) 34.5 % (20.0-40.0) 01/13/18 07: [place] % (Auto) 9.2 % (0.0-10.0) 01/13/18 07: Eos % (Auto) 1.1 % (0.0-4.0) 01/13/18 07: Baso % (Auto) 0.5 % (0.0-2.0) 01/13/18: Neut # (Auto) 1.8 K/uL (1.8-7.0) 01/13/18 07: Lymph # (Auto) 1.1 K/uL (1.0-4.3) 01/13/18 07: [place] # (Auto) 0.3 K/uL (0.0-0.8) 01/13/18 07: Eos # (Auto) 0.0 K/uL (0.0-0.7) 01/13/18 07:26 Baso # (Auto) 0.0 K/uL (0.0-0.2) 01/13/18 07:26 Differential Comment 01/13/18 07:26 PT 11.4 SECONDS (9.7-12.2) 01/08/18 03:35 INR 1.0 01/08/18 03:35 APTT 33 SECONDS (21-34) 01/08/18 03:35 D-Dimer, Quantitative 400 ng/mlDDU (0-243) H 01/08/18 03:35 Sodium 138 mmol/L (132-148) 01/13/18 07:26 Potassium 4.0 mmol/L (3.6-5.2) 01/13/18 07:26 Chloride 106 mmol/L (98-107) 01/13/18 07:26 Carbon Dioxide 24 mmol/L (22-30) 01/13/18 07:26 Anion Gap 12 (10-20) 01/13/18 07:26 BUN 19 mg/dL (7-17) H 01/13/18 07:26 Creatinine 0.7 mg/dL (0.7-1.2) 01/13/18 07:26 Est GFR ( Amer) > 60 01/13/18 07:26 Est GFR (Non-Af Amer) > 60 01/13/18 07:26 Random Glucose 97 mg/dL (65-105) 01/13/18 07:26 Calcium 8.3 mg/dl (8.6-10.4) L 01/13/18 07:26 Total Bilirubin 0.4 mg/dL (0.2-1.3) 01/13/18 07:26 AST 46 U/L (14-36) H 01/13/18 07:26 ALT 39 U/L (9-52) 01/13/18 07:26 Alkaline Phosphatase 125 U/L (38-126) 01/13/18 07:26 Total Creatine Kinase 89 U/L (30-135) 01/08/18 18:08 CK-MB (Mass) 1.32 ng/mL (0.0-3.38) 01/08/18 18:08 Troponin I < 0.0120 ng/mL (0.00-0.120) 01/08/18 18:08 NT-Pro-B Natriuret Pep 225 pg/mL (0-900) 01/08/18 03:35 Total Protein 6.2 g/dL (6.3-8.3) L 01/13/18 07:26 Albumin 3.6 g/dL (3.5-5.0) 01/13/18 07:26 Globulin 2.6 gm/dL (2.2-3.9) 01/13/18 07:26 Albumin/Globulin Ratio 1.4 (1.0-2.1) 01/13/18 07:26 Lipase 168 U/L (23-300) 01/08/18 03:35 TSH 3rd Generation 15.90 mIU/L (0.46-4.68) H 01/08/18 06:56 - Hospital Course Hospital Course: ADMITTED WITH CP RADINTING TO L [facility] A/W DIAPHORESIS [facility] , PRELIMINARY CARDIAC W/U NEG CT CHEST ANGIO , NEG FOR PE , POS NODULES CARDIO/NEURO W/U NEG PT WEAK AND UNABLE TO WALK PT WAS TRANSFERRED TO [facility] FOR MUCLE STRENGTHENING Discharge Plan - Follow Up Plan Condition: FAIR Disposition: HOME/ ROUTINE Instructions: Type 2 Diabetes, Chest Pain (DC) Additional Instructions: [facility] THE SERVICE OF DR SEGUNDO AT [facility]---CALL DR SEGUNDO FOR ADMITTING ORDER CONTINUE ALL HOME MEDICATION ORDER ACTIVITY TOLERATED PHYSICAL THERAPY PER FACILITY PROTOCOL AND DR SEGUNDO CALL DR SEGUNDO FOR FURTHER ORDERS Referrals: Nasir Segundo MD [Staff Provider] -
[2018-01-13 16:14] VITALS: BP 174/68; PULSE 66; TEMP 99; O2SAT 97
== END 2018-01-13 17:52 | DRG 311 ==
LOC: C.ER 01:47 → C.9E 06:00 → C.5S 01-09 07:50 → OBSVTOIN 01-10 12:30
PROVIDERS: ADMIT Internal Medicine Cardiovascular Disease; ATTEND Internal Medicine Cardiovascular Disease
DX: I20.0 Unstable angina (principal); E11.9 Type 2 diabetes mellitus without complications; E03.9 Hypothyroidism, unspecified; I10 Essential (primary) hypertension; Z90.49 Acquired absence of other specified parts of digestive tract; R91.1 Solitary pulmonary nodule; R26.81 Unsteadiness on feet; R53.1 Weakness